=== PATIENT | female | born 1985 | race Caucasian/White ===

== ENCOUNTER 2020-09-16 13:28 | Emergency (ER) | payer OTHER ==
[~2020-09-16] VITALS: Ht 162.6 cm; Wt 75.7 kg
[~2020-09-16 13:28] MED LIST: CEFTIN250 MG PO; KETO10TA2 PO
[2020-09-16] MEDS ORDERED: LAMOTRIGINE250 MG PO (13:37)
[2020-09-16] MEDS ORDERED: ONDANSETRON ODT4 MG PO (18:00)
[2020-09-16] MEDS ORDERED: PEPCID AC20 MG PO (18:00)
== END 2020-09-16 18:27 | disposition home or self-care (01) ==
LOC: ER 13:28
DX: K29.70 Gastritis, unspecified, without bleeding (principal); R42 Dizziness and giddiness